=== PATIENT | female | born 1985 | race Caucasian/White ===

== ENCOUNTER → 2021-08-14 08:44 | Outpatient (BNVA) | payer OTHER, SELFPAY | PROVIDERS: PCP Nurse Practitioner Family; Visit Provider Nurse Practitioner Family | DX: E06.3 Autoimmune thyroiditis (principal); R03.0 Elevated blood-pressure reading, without diagnosis of hypertension | CPT/HCPCS: 80053; 80061; 84439; 84443; 84481; 85025 ==

== ENCOUNTER → 2025-07-15 10:30 | Outpatient (BNVA) | payer OTHER, SELFPAY | PROVIDERS: PCP Nurse Practitioner Family; Visit Provider Nurse Practitioner Family | DX: Z12.4 Encounter for screening for malignant neoplasm of cervix (principal); Z13.6 Encounter for screening for cardiovascular disorders; E06.3 Autoimmune thyroiditis | CPT/HCPCS: 80053; 80061; 84439; 84443; 85025; 88175 ==

== ENCOUNTER 2025-07-30 09:52 | Outpatient (CLI) | payer OTHER, SELFPAY ==
--- NOTE | 2025-07-30 10:15 | MM_ITS ---
WS: [id number] DIAGNOSTIC BILATERAL DIGITAL BREAST TOMOSYNTHESIS MAMMOGRAPHY WITH CAD RIGHT breast ultrasound, limited HISTORY: Pain and palpable nodule RIGHT breast. COMPARISON: None available. TECHNIQUE: Bilateral craniocaudad, mediolateral oblique, and mediolateral views are submitted with tomosynthesis and SM. Spot compression RIGHT CC and MLO, spot compression LEFT MLO. Computer aided detection utilized. Breast composition: The breasts are heterogeneously dense, which may obscure small masses. Marker is placed along the medial inferior RIGHT breast in the area of the palpable nodule and pain. There is no underlying mass or distortion. No suspicious grouping of calcifications in either breast. There is an asymmetry measuring 7 mm seen on the LEFT MLO projection only above the nipple line. No persistent abnormality on the post compression view LEFT breast. RIGHT breast ultrasound, limited. Superficial cyst 4:00, 1 cm from the nipple RIGHT breast measures 0.7 x 0.3 x 0.5 cm. This is in the location of the palpable abnormality and pain described clinically. No additional abnormalities. No shadowing. MM/MM diag tomosynthesis [id number] IMPRESSION: BI-RADS: 2 - Benign FOLLOW UP: 1 Year Follow-up Superficial cyst RIGHT breast at 4:00.
--- NOTE | 2025-07-30 10:45 | US_ITS ---
WS: [id number] DIAGNOSTIC BILATERAL DIGITAL BREAST TOMOSYNTHESIS MAMMOGRAPHY WITH CAD RIGHT breast ultrasound, limited HISTORY: Pain and palpable nodule RIGHT breast. COMPARISON: None available. TECHNIQUE: Bilateral craniocaudad, mediolateral oblique, and mediolateral views are submitted with tomosynthesis and SM. Spot compression RIGHT CC and MLO, spot compression LEFT MLO. Computer aided detection utilized. Breast composition: The breasts are heterogeneously dense, which may obscure small masses. Marker is placed along the medial inferior RIGHT breast in the area of the palpable nodule and pain. There is no underlying mass or distortion. No suspicious grouping of calcifications in either breast. There is an asymmetry measuring 7 mm seen on the LEFT MLO projection only above the nipple line. No persistent abnormality on the post compression view LEFT breast. RIGHT breast ultrasound, limited. Superficial cyst 4:00, 1 cm from the nipple RIGHT breast measures 0.7 x 0.3 x 0.5 cm. This is in the location of the palpable abnormality and pain described clinically. No additional abnormalities. No shadowing. US/US breast RT limited* [id number] IMPRESSION: BI-RADS: 2 - Benign FOLLOW UP: 1 Year Follow-up Superficial cyst RIGHT breast at 4:00.
== END 2025-07-30 09:53 | disposition home or self-care (01) ==
LOC: RAD 09:53
PROVIDERS: PCP Nurse Practitioner Family; Visit Provider Nurse Practitioner Family
DX: N60.01 Solitary cyst of right breast (principal); R92.333 Mammographic heterogeneous density, bilateral breasts
CPT/HCPCS: 76642; 77062; G0279